=== PATIENT | female | born 1950 | race Two or more races ===

== ENCOUNTER 2021-03-15 06:15 | Inpatient (IN) | payer BC, OTHER ==
[~2021-03-15] VITALS: Ht 167.6 cm; Wt 79.4 kg
[2021-03-15] MEDS ORDERED: HEPARIN 1,000 UNITS/ml 1ML VIAL IV ONE (06:30)
[2021-03-15] MEDS ORDERED: HEPARIN SODIUM (PORCINE) 5000 UNITS/ML 1ML VIAL ONE ×2 (06:33→07:08)
[2021-03-15] MEDS ORDERED: ANGIOMAX 250 MG VIAL IV ONE (06:42)
[2021-03-15] MEDS ORDERED: fentaNYL CITRATE 100 MCG/2 ML VL ONE ×3 (06:43→09:21)
[2021-03-15] MEDS ORDERED: VERAPAMIL 2.5MG/ML INJ 2ML VIAL IV ONE (06:43)
[2021-03-15] MEDS ORDERED: MIDAZOLAM HCL 2MG/2ML 2ml VIAL (1mg/ml) ONE ×3 (06:43→09:21)
[2021-03-15] MEDS ORDERED: SODIUM CHL 0.9% 50 ML ONE (06:43)
[2021-03-15] MEDS ORDERED: LIDOCAINE 2%HCL (LOCAL ANESTH.) INJ 20ML MDV ONE ×2 (06:48→08:45)
[2021-03-15 07:00] LABS: Basophils # (auto) 0.1 10 ^3/uL (0-0.2); Basophils % (auto) 1.5 % (0.0-2.0); Eosinophils # (auto) 0.6 10 ^3/uL (0-0.8); Eosinophils % (auto) 7.1 % (0.0-7.0); Hematocrit 39.9 % (36.0-46.0); Lymphocytes # (auto) 3.5 10 ^3/uL (0.4-5.4); Lymphocytes % (auto) 42.6 % (10.0-50.0); Mean Corpuscular Hemoglobin 32.1 pg (28.0-32.0); Mean Corpuscular Volume 91.7 fL (80.0-100.0); Monocytes # (auto) 0.6 10 ^3/uL (0-1.3); Monocytes % (auto) 7.5 % (0.0-12.0); Neutrophils # (auto) 3.4 10 ^3/uL (1.6-8.6); Neutrophils % (auto) 41.3 % (37.0-80.0); Nucleated Red Blood Cells % 0.1 %; Red Blood Cells 4.36 10^6/uL (4.0-5.20); Red Cell Distribution Width 12.5 % (11.8-14.3); White Blood Cell 8.2 10^3/uL (4.4-10.8)
[2021-03-15 07:19] LABS: Calcium 8.5 mg/dL (8.5-10.1); Chloride 108 mmol/L (98-107); Potassium 4.2 mmol/L (3.5-5.1); Sodium 140 mmol/L (136-145)
[2021-03-15 07:28] LABS: Alanine Aminotransferase 20 U/L (13-56); Albumin 3.4 g/dL (3.4-5.0); Alkaline Phosphatase 53 U/L (45-117); Anion Gap 7 (5-15); Aspartate Aminotransferase 21 U/L (15-37); Bilirubin, Total 0.3 mg/dL (0.2-1.0); Blood Urea Nitrogen 15 mg/dL (7-18); Carbon Dioxide 25 mmol/L (21-32); GFR African American 93 mL/min; GFR Non-African American 77 mL/min; Glucose 101 mg/dL (74-106); Magnesium 2.2 mg/dL (1.6-2.6); Total Protein 7.2 g/dL (6.4-8.2)
[2021-03-15] MEDS ORDERED: IODIXANOL 320MG/ML 100ML BTL IV ONE (07:49)
[2021-03-15] MEDS ORDERED: TICAGRELOR 90 MG TAB ONE (08:10)
[2021-03-15] MEDS ORDERED: HYDROcodone-ACET 5/325MG TAB PO PRN (10:15)
[2021-03-15] MEDS ORDERED: MORPHINE SULF INJ 2 MG/ML SYRINGE 1ML IV PRN (10:15)
[2021-03-15] MEDS ORDERED: NITROGLYCERIN 0.4 MG SL TAB SL PRN (10:15)
[2021-03-15] MEDS ORDERED: ACETAMINOPHEN 500 MG TAB PO PRN (10:15)
[2021-03-15 12:00] VITALS: BP 153/78
[2021-03-15 14:17] VITALS: BP 153/78
[2021-03-15 16:00] VITALS: BP 152/96
[2021-03-15 22:00] VITALS: BP 145/75
[2021-03-15] MEDS: TICAGRELOR 90 MG TAB PO SCH (22:35)
[2021-03-16 05:00] VITALS: BP 108/71
[2021-03-16 06:00] LABS: Basophils # (auto) 0.1 10 ^3/uL (0-0.2); Basophils % (auto) 0.5 % (0.0-2.0); Eosinophils # (auto) 0.1 10 ^3/uL (0-0.8); Eosinophils % (auto) 0.7 % (0.0-7.0); Hematocrit 40.8 % (36.0-46.0); Hemoglobin 14.2 g/dL (12.2-16.2); Lymphocytes # (auto) 1.7 10 ^3/uL (0.4-5.4); Lymphocytes % (auto) 13.4 % (10.0-50.0); Mean Corpuscular Hgb Conc. 34.8 g/dL (32.0-36.0); Mean Corpuscular Volume 91.8 fL (80.0-100.0); Monocytes # (auto) 0.8 10 ^3/uL (0-1.3); Monocytes % (auto) 6.6 % (0.0-12.0); Neutrophils % (auto) 78.8 % (37.0-80.0); Red Blood Cells 4.44 10^6/uL (4.0-5.20); Red Cell Distribution Width 12.5 % (11.8-14.3); White Blood Cell 12.7 10^3/uL (4.4-10.8)
[2021-03-16 06:29] LABS: Albumin 3.3 g/dL (3.4-5.0); Calcium 8.5 mg/dL (8.5-10.1); Potassium 3.5 mmol/L (3.5-5.1)
[2021-03-16 06:49] LABS: BUN/Creatinine Ratio 14.1; Bilirubin, Total 0.4 mg/dL (0.2-1.0); Total Protein 7.1 g/dL (6.4-8.2)
[2021-03-16 08:00] VITALS: BP 115/69
[2021-03-16] MEDS ORDERED: LEVOTHYROXINE SODIUM 50 MCG TAB PO ONE (08:45)
[2021-03-16 09:00] VITALS: BP 115/69
[2021-03-16] MEDS: ASPirin-EC 81 mg tab PO SCH (09:51)
[2021-03-16] MEDS: TICAGRELOR 90 MG TAB PO SCH ×2 (09:51→21:46)
[2021-03-16 13:00] VITALS: BP 114/66
[2021-03-16 16:37] VITALS: BP 97/54
[2021-03-16 22:00] VITALS: BP 93/57
[2021-03-17 05:00] VITALS: BP 94/63
[2021-03-17 05:46] LABS: Basophils # (auto) 0 10 ^3/uL (0-0.2); Basophils % (auto) 0.3 % (0.0-2.0); Eosinophils # (auto) 0 10 ^3/uL (0-0.8); Eosinophils % (auto) 0.3 % (0.0-7.0); Hematocrit 38.3 % (36.0-46.0); Hemoglobin 13.3 g/dL (12.2-16.2); Lymphocytes % (auto) 15.8 % (10.0-50.0); Mean Corpuscular Hemoglobin 32.3 pg (28.0-32.0); Mean Corpuscular Hgb Conc. 34.8 g/dL (32.0-36.0); Mean Corpuscular Volume 92.7 fL (80.0-100.0); Monocytes # (auto) 1.2 10 ^3/uL (0-1.3); Monocytes % (auto) 9.5 % (0.0-12.0); Neutrophils # (auto) 9.6 10 ^3/uL (1.6-8.6); Neutrophils % (auto) 74.1 % (37.0-80.0); Nucleated Red Blood Cells % 0.2 %; Red Blood Cells 4.14 10^6/uL (4.0-5.20); Red Cell Distribution Width 12.3 % (11.8-14.3); White Blood Cell 12.9 10^3/uL (4.4-10.8)
[2021-03-17 06:02] LABS: Potassium 3.7 mmol/L (3.5-5.1)
[2021-03-17 06:24] LABS: Albumin 3.1 g/dL (3.4-5.0); BUN/Creatinine Ratio 12.7; Bilirubin, Total 0.5 mg/dL (0.2-1.0); Calcium 8.6 mg/dL (8.5-10.1); Total Protein 7.2 g/dL (6.4-8.2)
[2021-03-17] MEDS ORDERED: LEVOTHYROXINE SODIUM 50 MCG TAB PO SCH (07:00)
[2021-03-17 08:00] VITALS: BP 90/50
[2021-03-17 08:30] VITALS: BP 90/50
[2021-03-17] MEDS: ASPirin-EC 81 mg tab PO SCH (09:59)
[2021-03-17] MEDS: TICAGRELOR 90 MG TAB PO SCH (09:59)
== END 2021-03-17 11:50 | disposition home or self-care (01) | DRG 246 ==
LOC: ER 06:15 → EDBD 06:15 → CATH 06:39 → ER 06:57 → TELE 10:08 → TELE-CENTR 11:20
PROVIDERS: ADMIT Internal Medicine; ATTEND Internal Medicine
PROC: 4A023N7 Measurement of Cardiac Sampling and Pressure, Left Heart, Percutaneous Approach (ICD-10-PCS; principal; 2021-03-15)
PROC: 027137Z Dilation of Coronary Artery, Two Arteries with Four or More Drug-eluting Intraluminal Devices, Percutaneous Approach (ICD-10-PCS; 2021-03-15)
PROC: B211YZZ Fluoroscopy of Multiple Coronary Arteries using Other Contrast (ICD-10-PCS; 2021-03-15)
PROC: B215YZZ Fluoroscopy of Left Heart using Other Contrast (ICD-10-PCS; 2021-03-15)
DX: I21.19 ST elevation (STEMI) myocardial infarction involving other coronary artery of inferior wall (principal); N17.0 Acute kidney failure with tubular necrosis; E44.1 Mild protein-calorie malnutrition; R65.10 Systemic inflammatory response syndrome (SIRS) of non-infectious origin without acute organ dysfunction; E03.9 Hypothyroidism, unspecified; I12.9 Hypertensive chronic kidney disease with stage 1 through stage 4 chronic kidney disease, or unspecified chronic kidney disease; E88.09 Other disorders of plasma-protein metabolism, not elsewhere classified; Z20.822 Contact with and (suspected) exposure to COVID-19; I25.10 Atherosclerotic heart disease of native coronary artery without angina pectoris; N18.9 Chronic kidney disease, unspecified; R00.1 Bradycardia, unspecified; E78.5 Hyperlipidemia, unspecified; Z79.82 Long term (current) use of aspirin; Z79.899 Other long term (current) drug therapy; Z80.9 Family history of malignant neoplasm, unspecified; Z95.5 Presence of coronary angioplasty implant and graft; Z82.49 Family history of ischemic heart disease and other diseases of the circulatory system
CPT/HCPCS: 36415; 71045; 80053; 83735; 84443; 84484; 85025; 87426; 93306; 96374; 99152; 99153; 99291; C1874; C1887; G0378; J2250; Q9967

== ENCOUNTER 2022-02-26 15:43 | Inpatient (IN) | payer BC, OTHER ==
[~2022-02-26] VITALS: Ht 167.6 cm; Wt 85.4 kg
[2022-02-26 17:57] LABS: Hematocrit 42.2 % (36.0-46.0); Hemoglobin 13.8 g/dL (12.2-16.2); Mean Corpuscular Hemoglobin 30.6 pg (28.0-32.0); Mean Corpuscular Hgb Conc. 32.8 g/dL (32.0-36.0); Mean Corpuscular Volume 93.1 fL (80.0-100.0); Red Blood Cells 4.53 10^6/uL (4.0-5.20); White Blood Cell 9.8 10^3/uL (4.4-10.8)
[2022-02-26 18:06] LABS: Band Neutrophils % (manual) 0; Basophils % (manual) 0 (0.0-2.0); Blast Cells 0; Metamyelocytes % 0; Myelocytes % 0; Promyelocytes % 0; Reactive Lymphocytes 0
[2022-02-26 18:11] LABS: Albumin 4.2 g/dL (3.4-5.0); Calcium 9.2 mg/dL (8.5-10.1); Potassium 3.9 mmol/L (3.5-5.1)
[2022-02-26 18:14] LABS: BUN/Creatinine Ratio 14.8; Bilirubin, Total 0.4 mg/dL (0.2-1.0); Total Protein 7.9 g/dL (6.4-8.2)
[2022-02-26] MEDS ORDERED: TICAGRELOR 90 MG TAB PO ONE (18:30)
[2022-02-26] MEDS ORDERED: SODIUM CHLORIDE 0.9% 1,000 ML IV ONE (18:30)
[2022-02-26] MEDS ORDERED: HEPARIN DRIP/D5W 100UNITS/ML 250 ML IV SCH (18:30)
[2022-02-26] MEDS ORDERED: HEPARIN SODIUM (PORCINE) 5000 UNITS/ML 1ML VIAL IV ONE (18:30)
[2022-02-26] MEDS ORDERED: SOD CHL 0.45% 1,000 ML IV ONE (18:45)
[2022-02-26] MEDS ORDERED: NITROGLYCERIN 0.4 MG SL TAB SL PRN (18:45)
[2022-02-26] MEDS ORDERED: MORPHINE SULFATE INJ 2 MG/ml SYRG IV PRN (18:45)
[2022-02-26 19:12] LABS: Eosinophils % (manual) 1 (0-7); Lymphocytes % (manual) 27 (10.0-50.0); Monocytes % (manual) 10 (0-12)
[2022-02-26 22:44] LABS: INR 1.02 (0.9-1.15)
[2022-02-27] VITALS (10 sets, daily range): BP systolic 110–138; BP diastolic 65–93
[2022-02-27] MEDS ORDERED: ATOR20TA PO (03:21)
[2022-02-27] MEDS ORDERED: ASPI1TAB19 PO (03:21)
[2022-02-27] MEDS ORDERED: LEVO50TA7 PO (03:21)
[2022-02-27] MEDS ORDERED: TICA90TA PO (03:21)
[2022-02-27 04:30] LABS: INR 1.06 (0.9-1.15); Partial Thromboplastin Time 53.1 sec (24.6-33.4)
[2022-02-27 06:36] LABS: Basophils # (auto) 0 10 ^3/uL (0-0.2); Basophils % (auto) 0.4 % (0.0-2.0); Eosinophils # (auto) 0.3 10 ^3/uL (0-0.8); Eosinophils % (auto) 3.4 % (0.0-7.0); Hematocrit 37.9 % (36.0-46.0); Hemoglobin 12.8 g/dL (12.2-16.2); Lymphocytes # (auto) 2.8 10 ^3/uL (0.4-5.4); Lymphocytes % (auto) 29.3 % (10.0-50.0); Mean Corpuscular Hemoglobin 31.1 pg (28.0-32.0); Mean Corpuscular Hgb Conc. 33.7 g/dL (32.0-36.0); Mean Corpuscular Volume 92.3 fL (80.0-100.0); Monocytes # (auto) 0.7 10 ^3/uL (0-1.3); Monocytes % (auto) 7.3 % (0.0-12.0); Neutrophils # (auto) 5.7 10 ^3/uL (1.6-8.6); Neutrophils % (auto) 59.6 % (37.0-80.0); Nucleated Red Blood Cells % 0.1 %; Red Blood Cells 4.11 10^6/uL (4.0-5.20); Red Cell Distribution Width 13.2 % (11.8-14.3); White Blood Cell 9.6 10^3/uL (4.4-10.8)
[2022-02-27 06:37] LABS: Albumin 3.3 g/dL (3.4-5.0); Calcium 8.4 mg/dL (8.5-10.1); Potassium 3.6 mmol/L (3.5-5.1)
[2022-02-27 06:43] LABS: BUN/Creatinine Ratio 16.4; Bilirubin, Total 0.5 mg/dL (0.2-1.0); Total Protein 6.5 g/dL (6.4-8.2)
[2022-02-27] MEDS ORDERED: ASPirin 325 MG TAB PO ONE (09:00)
[2022-02-27 09:33] LABS: Cholesterol 143 mg/dL (< 200)
[2022-02-27 09:36] LABS: HDL Cholesterol 40 mg/dL (40-59); LDL Cholesterol 87 mg/dL (< 100); Triglycerides 166 mg/dL (< 150)
[2022-02-27 09:56] LABS: INR 0.99 (0.9-1.15); Partial Thromboplastin Time 38.7 sec (24.6-33.4)
[2022-02-27] MEDS ORDERED: HEPARIN DRIP/D5W 100UNITS/ML 250 ML IV SCH ×2 (12:15→19:00)
[2022-02-27] MEDS: TICAGRELOR 90 MG TAB PO SCH ×2 (12:58→21:47)
[2022-02-27] MEDS ORDERED: IODIXANOL 320MG/ML 100ML BTL IV ONE ×2 (14:14→14:24)
[2022-02-27] MEDS ORDERED: LIDOCAINE 2%HCL (LOCAL ANESTH.) INJ 10ml MDV ONE (14:14)
[2022-02-27] MEDS ORDERED: VERAPAMIL 2.5MG/ML INJ 2ML VIAL IV ONE (14:20)
[2022-02-27] MEDS ORDERED: ANGIOMAX 250 MG VIAL IV ONE (14:20)
[2022-02-27] MEDS ORDERED: HEPARIN SODIUM (PORCINE) 5000 UNITS/ML 1ML VIAL ONE (14:20)
[2022-02-27] MEDS ORDERED: fentaNYL CITRATE 100 MCG/2 ML VL ONE (14:21)
[2022-02-27] MEDS ORDERED: SODIUM CHL 0.9% 0 ML ONE (14:21)
[2022-02-27] MEDS ORDERED: MIDAZOLAM HCL 2MG/2ML 2ml VIAL (1mg/ml) ONE (14:21)
[2022-02-27 16:51] LABS: INR 1.01 (0.9-1.15)
[2022-02-27 16:55] LABS: Partial Thromboplastin Time > 139.0 sec (24.6-33.4)
[2022-02-27] MEDS: ATORVASTATIN 20 MG TAB PO SCH (21:47)
[2022-02-27 23:35] LABS: INR 0.99 (0.9-1.15); Partial Thromboplastin Time 37.3 sec (24.6-33.4)
[2022-02-28 05:00] VITALS: BP 120/67
[2022-02-28 06:53] LABS: Basophils # (auto) 0.1 10 ^3/uL (0-0.2); Basophils % (auto) 0.6 % (0.0-2.0); Eosinophils # (auto) 0 10 ^3/uL (0-0.8); Eosinophils % (auto) 0.5 % (0.0-7.0); Hematocrit 39.1 % (36.0-46.0); Hemoglobin 13.3 g/dL (12.2-16.2); Lymphocytes # (auto) 1.9 10 ^3/uL (0.4-5.4); Lymphocytes % (auto) 21.2 % (10.0-50.0); Mean Corpuscular Hemoglobin 31.3 pg (28.0-32.0); Mean Corpuscular Hgb Conc. 33.9 g/dL (32.0-36.0); Mean Corpuscular Volume 92.3 fL (80.0-100.0); Monocytes # (auto) 0.7 10 ^3/uL (0-1.3); Monocytes % (auto) 7.8 % (0.0-12.0); Neutrophils # (auto) 6.3 10 ^3/uL (1.6-8.6); Neutrophils % (auto) 69.9 % (37.0-80.0); Nucleated Red Blood Cells % 0.1 %; Red Blood Cells 4.24 10^6/uL (4.0-5.20); Red Cell Distribution Width 13.1 % (11.8-14.3); White Blood Cell 9.1 10^3/uL (4.4-10.8)
[2022-02-28 07:06] LABS: Albumin 3.5 g/dL (3.4-5.0); Calcium 8.6 mg/dL (8.5-10.1); Potassium 3.2 mmol/L (3.5-5.1)
[2022-02-28 07:11] LABS: BUN/Creatinine Ratio 14.1; Bilirubin, Total 0.6 mg/dL (0.2-1.0); Partial Thromboplastin Time 40.8 sec (24.6-33.4); Total Protein 7.2 g/dL (6.4-8.2)
[2022-02-28 08:00] VITALS: BP 103/60
[2022-02-28 09:00] VITALS: BP 101/67
[2022-02-28] MEDS: ASPirin 81 mg TAB PO SCH (09:47)
[2022-02-28] MEDS: TICAGRELOR 90 MG TAB PO SCH ×2 (09:47→21:30)
[2022-02-28] MEDS ORDERED: HEPARIN DRIP/D5W 100UNITS/ML 250 ML IV SCH (10:00)
[2022-02-28 13:00] VITALS: BP 105/60
[2022-02-28 15:38] LABS: INR 1.01 (0.9-1.15); Partial Thromboplastin Time 48.7 sec (24.6-33.4)
[2022-02-28 21:30] VITALS: BP 148/78
[2022-02-28] MEDS: ATORVASTATIN 20 MG TAB PO SCH (21:30)
[2022-02-28 22:41] LABS: INR 1.01 (0.9-1.15)
[2022-02-28 22:47] LABS: Partial Thromboplastin Time 72.3 sec (24.6-33.4)
[2022-03-01] MEDS: HEPARIN DRIP/D5W 100UNITS/ML 250 ML IV SCH ×3 (00:21→19:58)
[2022-03-01 05:00] VITALS: BP 136/75
[2022-03-01 06:00] LABS: Basophils # (auto) 0 10 ^3/uL (0-0.2); Basophils % (auto) 0.6 % (0.0-2.0); Eosinophils # (auto) 0.2 10 ^3/uL (0-0.8); Eosinophils % (auto) 2.2 % (0.0-7.0); Hematocrit 38.8 % (36.0-46.0); Hemoglobin 13.1 g/dL (12.2-16.2); Lymphocytes # (auto) 2.2 10 ^3/uL (0.4-5.4); Lymphocytes % (auto) 26.9 % (10.0-50.0); Mean Corpuscular Hemoglobin 31.2 pg (28.0-32.0); Mean Corpuscular Hgb Conc. 33.8 g/dL (32.0-36.0); Mean Corpuscular Volume 92.2 fL (80.0-100.0); Monocytes # (auto) 0.7 10 ^3/uL (0-1.3); Monocytes % (auto) 8.4 % (0.0-12.0); Neutrophils # (auto) 5.1 10 ^3/uL (1.6-8.6); Neutrophils % (auto) 61.9 % (37.0-80.0); Red Blood Cells 4.21 10^6/uL (4.0-5.20); White Blood Cell 8.2 10^3/uL (4.4-10.8)
[2022-03-01 06:17] LABS: Alanine Aminotransferase 22 U/L (13-56); Albumin 3.3 g/dL (3.4-5.0); Anion Gap 11 (5-15); Aspartate Aminotransferase 21 U/L (15-37); BUN/Creatinine Ratio 12.7; Blood Urea Nitrogen 9 mg/dL (7-18); Calcium 8.8 mg/dL (8.5-10.1); Carbon Dioxide 16 mmol/L (21-32); Chloride 110 mmol/L (98-107); GFR African American 105 mL/min; GFR Non-African American 87 mL/min; Glucose 91 mg/dL (74-106); Potassium 3.4 mmol/L (3.5-5.1); Sodium 137 mmol/L (136-145)
[2022-03-01 06:20] LABS: Alkaline Phosphatase 70 U/L (45-117); Bilirubin, Total 0.5 mg/dL (0.2-1.0)
[2022-03-01 06:36] LABS: INR 1.03 (0.9-1.15)
[2022-03-01 07:44] LABS: Partial Thromboplastin Time 74.3 sec (24.6-33.4)
[2022-03-01 08:00] VITALS: BP 110/60
[2022-03-01 09:00] VITALS: BP 100/49
[2022-03-01] MEDS: ASPirin 81 mg TAB PO SCH (10:55)
[2022-03-01] MEDS: TICAGRELOR 90 MG TAB PO SCH ×2 (10:55→22:15)
[2022-03-01 12:58] LABS: INR 1.01 (0.9-1.15); Partial Thromboplastin Time 58.9 sec (24.6-33.4)
[2022-03-01 13:00] VITALS: BP 133/78
[2022-03-01 14:00] VITALS: BP 137/77
[2022-03-01 21:50] VITALS: BP 131/65
[2022-03-01] MEDS: ATORVASTATIN 20 MG TAB PO SCH (22:15)
[2022-03-02 05:00] VITALS: BP 124/65
[2022-03-02 07:56] LABS: Basophils # (auto) 0.1 10 ^3/uL (0-0.2); Basophils % (auto) 0.7 % (0.0-2.0); Eosinophils # (auto) 0.2 10 ^3/uL (0-0.8); Eosinophils % (auto) 2.3 % (0.0-7.0); Hematocrit 39.2 % (36.0-46.0); Hemoglobin 13.2 g/dL (12.2-16.2); Lymphocytes # (auto) 2.3 10 ^3/uL (0.4-5.4); Mean Corpuscular Hemoglobin 31.1 pg (28.0-32.0); Mean Corpuscular Hgb Conc. 33.8 g/dL (32.0-36.0); Mean Corpuscular Volume 92.1 fL (80.0-100.0); Monocytes # (auto) 0.6 10 ^3/uL (0-1.3); Monocytes % (auto) 7.9 % (0.0-12.0); Neutrophils # (auto) 4.7 10 ^3/uL (1.6-8.6); Neutrophils % (auto) 60.1 % (37.0-80.0); Nucleated Red Blood Cells % 0.1 %; Red Blood Cells 4.26 10^6/uL (4.0-5.20); Red Cell Distribution Width 12.8 % (11.8-14.3); White Blood Cell 7.9 10^3/uL (4.4-10.8)
[2022-03-02 08:00] VITALS: BP 112/67
[2022-03-02 08:09] LABS: INR 0.97 (0.9-1.15); Partial Thromboplastin Time 33.2 sec (24.6-33.4)
[2022-03-02 08:24] LABS: Albumin 3.6 g/dL (3.4-5.0); BUN/Creatinine Ratio 13.5; Bilirubin, Total 0.5 mg/dL (0.2-1.0)
[2022-03-02] MEDS ORDERED: HEPARIN SODIUM (PORCINE) 5000 UNITS/ML 1ML VIAL IV ONE (08:30)
[2022-03-02 09:00] VITALS: BP 112/67
[2022-03-02] MEDS: HEPARIN DRIP/D5W 100UNITS/ML 250 ML IV SCH (09:17)
[2022-03-02] MEDS: ASPirin 81 mg TAB PO SCH (09:56)
[2022-03-02] MEDS: TICAGRELOR 90 MG TAB PO SCH ×2 (09:57→21:12)
[2022-03-02 13:00] VITALS: BP 129/64
[2022-03-02 16:10] LABS: INR 0.99 (0.9-1.15)
[2022-03-02 16:36] LABS: Partial Thromboplastin Time 122.2 sec (24.6-33.4)
[2022-03-02 17:00] VITALS: BP 127/79
[2022-03-02] MEDS: ATORVASTATIN 20 MG TAB PO SCH (21:12)
[2022-03-02 22:00] VITALS: BP 141/83
[2022-03-03] MEDS: HEPARIN DRIP/D5W 100UNITS/ML 250 ML IV SCH ×2 (00:08→13:44)
[2022-03-03 01:20] LABS: INR 0.99 (0.9-1.15)
[2022-03-03 01:21] LABS: Partial Thromboplastin Time 97.8 sec (24.6-33.4)
[2022-03-03 05:00] VITALS: BP 131/68
[2022-03-03 05:54] LABS: Basophils # (auto) 0 10 ^3/uL (0-0.2); Basophils % (auto) 0.5 % (0.0-2.0); Eosinophils # (auto) 0.2 10 ^3/uL (0-0.8); Eosinophils % (auto) 2.6 % (0.0-7.0); Hematocrit 38.5 % (36.0-46.0); Hemoglobin 13.1 g/dL (12.2-16.2); Lymphocytes # (auto) 2.1 10 ^3/uL (0.4-5.4); Lymphocytes % (auto) 25.9 % (10.0-50.0); Mean Corpuscular Hemoglobin 31.4 pg (28.0-32.0); Mean Corpuscular Hgb Conc. 34.1 g/dL (32.0-36.0); Mean Corpuscular Volume 92.1 fL (80.0-100.0); Monocytes # (auto) 0.6 10 ^3/uL (0-1.3); Monocytes % (auto) 7.3 % (0.0-12.0); Neutrophils # (auto) 5.2 10 ^3/uL (1.6-8.6); Neutrophils % (auto) 63.7 % (37.0-80.0); Red Blood Cells 4.18 10^6/uL (4.0-5.20); White Blood Cell 8.2 10^3/uL (4.4-10.8)
[2022-03-03 06:03] LABS: Calcium 8.6 mg/dL (8.5-10.1); Potassium 3.6 mmol/L (3.5-5.1)
[2022-03-03 06:09] LABS: Albumin 3.4 g/dL (3.4-5.0); BUN/Creatinine Ratio 15.8; Bilirubin, Total 0.4 mg/dL (0.2-1.0)
[2022-03-03 08:00] VITALS: BP 123/78
[2022-03-03 09:00] VITALS: BP 123/78
[2022-03-03 09:56] LABS: INR 0.96 (0.9-1.15); Partial Thromboplastin Time 50.9 sec (24.6-33.4)
[2022-03-03] MEDS: ASPirin 81 mg TAB PO SCH (10:00)
[2022-03-03] MEDS: TICAGRELOR 90 MG TAB PO SCH ×2 (10:00→22:01)
[2022-03-03 13:00] VITALS: BP 119/74
[2022-03-03 14:44] LABS: INR 0.98 (0.9-1.15); Partial Thromboplastin Time 46.4 sec (24.6-33.4)
[2022-03-03 17:00] VITALS: BP 139/69
[2022-03-03 22:00] VITALS: BP 158/65
[2022-03-03] MEDS: ATORVASTATIN 20 MG TAB PO SCH (22:01)
[2022-03-03 22:20] LABS: INR 0.99 (0.9-1.15)
[2022-03-04 05:00] VITALS: BP 112/61
[2022-03-04] MEDS: LEVOTHYROXINE SODIUM 50 MCG TAB PO SCH (06:12)
[2022-03-04 07:12] LABS: Basophils # (auto) 0 10 ^3/uL (0-0.2); Basophils % (auto) 0.5 % (0.0-2.0); Eosinophils # (auto) 0.2 10 ^3/uL (0-0.8); Eosinophils % (auto) 2.7 % (0.0-7.0); Hemoglobin 13.4 g/dL (12.2-16.2); Lymphocytes # (auto) 1.9 10 ^3/uL (0.4-5.4); Lymphocytes % (auto) 26.3 % (10.0-50.0); Mean Corpuscular Hemoglobin 31.7 pg (28.0-32.0); Mean Corpuscular Hgb Conc. 34.4 g/dL (32.0-36.0); Mean Corpuscular Volume 92.1 fL (80.0-100.0); Monocytes # (auto) 0.5 10 ^3/uL (0-1.3); Monocytes % (auto) 7.5 % (0.0-12.0); Neutrophils # (auto) 4.6 10 ^3/uL (1.6-8.6); Nucleated Red Blood Cells % 0.1 %; Red Blood Cells 4.24 10^6/uL (4.0-5.20); Red Cell Distribution Width 13.1 % (11.8-14.3); White Blood Cell 7.3 10^3/uL (4.4-10.8)
[2022-03-04 07:46] LABS: Albumin 3.4 g/dL (3.4-5.0); BUN/Creatinine Ratio 16.7; Bilirubin, Total 0.3 mg/dL (0.2-1.0); Total Protein 6.8 g/dL (6.4-8.2)
[2022-03-04 07:49] LABS: INR 0.97 (0.9-1.15)
[2022-03-04 08:57] VITALS: BP 125/75
[2022-03-04] MEDS: TICAGRELOR 90 MG TAB PO SCH ×2 (09:00→23:11)
[2022-03-04] MEDS: ASPirin 81 mg TAB PO SCH (09:00)
[2022-03-04] MEDS: HEPARIN DRIP/D5W 100UNITS/ML 250 ML IV SCH ×2 (09:27→16:19)
[2022-03-04 13:00] VITALS: BP 136/64
[2022-03-04 16:07] LABS: INR 0.98 (0.9-1.15); Partial Thromboplastin Time 40.8 sec (24.6-33.4)
[2022-03-04 17:00] VITALS: BP 148/81
[2022-03-04 21:41] LABS: Partial Thromboplastin Time 47.6 sec (24.6-33.4)
[2022-03-04 22:00] VITALS: BP 129/71
[2022-03-04] MEDS: ATORVASTATIN 20 MG TAB PO SCH (22:12)
[2022-03-05 05:00] VITALS: BP 124/73
[2022-03-05 05:58] LABS: Basophils # (auto) 0.1 10 ^3/uL (0-0.2); Basophils % (auto) 0.8 % (0.0-2.0); Eosinophils # (auto) 0.2 10 ^3/uL (0-0.8); Eosinophils % (auto) 3.1 % (0.0-7.0); Hematocrit 39.2 % (36.0-46.0); Hemoglobin 13.4 g/dL (12.2-16.2); Lymphocytes # (auto) 2.1 10 ^3/uL (0.4-5.4); Mean Corpuscular Hemoglobin 31.7 pg (28.0-32.0); Mean Corpuscular Hgb Conc. 34.2 g/dL (32.0-36.0); Mean Corpuscular Volume 92.7 fL (80.0-100.0); Monocytes # (auto) 0.7 10 ^3/uL (0-1.3); Monocytes % (auto) 8.5 % (0.0-12.0); Neutrophils # (auto) 4.7 10 ^3/uL (1.6-8.6); Neutrophils % (auto) 60.6 % (37.0-80.0); Nucleated Red Blood Cells % 0.1 %; Red Blood Cells 4.23 10^6/uL (4.0-5.20); Red Cell Distribution Width 13.3 % (11.8-14.3); White Blood Cell 7.8 10^3/uL (4.4-10.8)
[2022-03-05 06:12] LABS: INR 0.97 (0.9-1.15); Partial Thromboplastin Time 57.5 sec (24.6-33.4)
[2022-03-05 06:14] LABS: Albumin 3.5 g/dL (3.4-5.0); Calcium 8.9 mg/dL (8.5-10.1); Potassium 4.2 mmol/L (3.5-5.1)
[2022-03-05] MEDS: LEVOTHYROXINE SODIUM 50 MCG TAB PO SCH (06:15)
[2022-03-05 06:18] LABS: Bilirubin, Total 0.4 mg/dL (0.2-1.0); Total Protein 6.8 g/dL (6.4-8.2)
[2022-03-05] MEDS: TICAGRELOR 90 MG TAB PO SCH ×2 (08:27→21:35)
[2022-03-05] MEDS: ASPirin 81 mg TAB PO SCH (08:27)
[2022-03-05 09:02] VITALS: BP 108/71
[2022-03-05 11:33] LABS: BUN/Creatinine Ratio 20.5
[2022-03-05 12:13] LABS: INR 0.99 (0.9-1.15); Partial Thromboplastin Time 64.9 sec (24.6-33.4)
[2022-03-05] MEDS: HEPARIN DRIP/D5W 100UNITS/ML 250 ML IV SCH (12:17)
[2022-03-05 13:00] VITALS: BP 113/78
[2022-03-05 16:54] VITALS: BP 126/69
[2022-03-05 19:31] LABS: INR 0.99 (0.9-1.15); Partial Thromboplastin Time 69.6 sec (24.6-33.4)
[2022-03-05] MEDS: ATORVASTATIN 20 MG TAB PO SCH (21:35)
[2022-03-05 21:38] VITALS: BP 119/69
[2022-03-06 05:00] VITALS: BP 131/68
[2022-03-06] MEDS: LEVOTHYROXINE SODIUM 50 MCG TAB PO SCH (06:18)
[2022-03-06] MEDS: HEPARIN DRIP/D5W 100UNITS/ML 250 ML IV SCH (06:21)
[2022-03-06] MEDS: TICAGRELOR 90 MG TAB PO SCH (09:33)
[2022-03-06] MEDS: ASPirin 81 mg TAB PO SCH (09:33)
[2022-03-06 10:05] VITALS: BP 132/78
[2022-03-06 13:44] VITALS: BP 136/76
[2022-03-06 14:08] VITALS: BP 136/76
[2022-03-06 17:23] VITALS: BP 137/78
[2022-03-06 18:43] VITALS: BP 118/79
[2022-03-06 20:03] LABS: Partial Thromboplastin Time 55.5 sec (24.6-33.4)
== END 2022-03-06 19:53 | disposition short-term general hospital (02) | DRG 282 ==
LOC: ER 15:43 → TELE 18:41 → TELE-CENTR 23:49 → OBSVTOIN 02-27 09:53 → TELE-CENTR 03-01 22:13
PROVIDERS: ADMIT Internal Medicine; ATTEND Internal Medicine
PROC: 4A023N7 Measurement of Cardiac Sampling and Pressure, Left Heart, Percutaneous Approach (ICD-10-PCS; principal; 2022-02-27)
PROC: B211YZZ Fluoroscopy of Multiple Coronary Arteries using Other Contrast (ICD-10-PCS; 2022-02-27)
PROC: B215YZZ Fluoroscopy of Left Heart using Other Contrast (ICD-10-PCS; 2022-02-27)
DX: I21.4 Non-ST elevation (NSTEMI) myocardial infarction (principal); I25.10 Atherosclerotic heart disease of native coronary artery without angina pectoris; E03.9 Hypothyroidism, unspecified; E78.5 Hyperlipidemia, unspecified; Z20.822 Contact with and (suspected) exposure to COVID-19; E87.6 Hypokalemia; E66.9 Obesity, unspecified; I25.2 Old myocardial infarction; Z98.61 Coronary angioplasty status; Z79.82 Long term (current) use of aspirin; Z80.8 Family history of malignant neoplasm of other organs or systems; Z81.8 Family history of other mental and behavioral disorders; Z82.0 Family history of epilepsy and other diseases of the nervous system; Z82.3 Family history of stroke; Z82.49 Family history of ischemic heart disease and other diseases of the circulatory system; Z79.899 Other long term (current) drug therapy; Z84.1 Family history of disorders of kidney and ureter; Z98.51 Tubal ligation status; Z68.28 Body mass index [BMI] 28.0-28.9, adult
CPT/HCPCS: 36415; 71045; 80053; 80061; 83880; 84443; 84484; 85007; 85025; 85027; 85610; 85730; 93005; 93306; 93458; 96365; 96366; 96376; 99152; 99153; C1887; G0378; J2001; J2250; Q9967

== ENCOUNTER 2022-10-20 15:19 | Emergency (ER) | payer BC, OTHER ==
[~2022-10-20] VITALS: Ht 167.6 cm; Wt 69.0 kg
[~2022-10-20 15:19] MED LIST: ASPI1TAB19 PO; ATOR20TA PO; LEVO50TA7 PO; TICA90TA PO
[2022-10-20 15:32] VITALS: BP 117/87
[2022-10-20] MEDS ORDERED: ACE3T PO (20:43)
[2022-10-20] MEDS ORDERED: ACETAMINOPHEN 325 MG TAB PO ONE (20:45)
== END 2022-10-20 21:15 | disposition home or self-care (01) ==
LOC: ER 15:19
DX: S62.300A Unspecified fracture of second metacarpal bone, right hand, initial encounter for closed fracture (principal); Z98.51 Tubal ligation status; W22.8XXA Striking against or struck by other objects, initial encounter; Y93.89 Activity, other specified; Y92.89 Other specified places as the place of occurrence of the external cause; Y99.8 Other external cause status
CPT/HCPCS: 29125; 73130

== ENCOUNTER 2022-10-24 16:33 | Emergency (ER) | payer BC, OTHER ==
[~2022-10-24] VITALS: Ht 167.6 cm; Wt 61.3 kg
[~2022-10-24 16:33] MED LIST changes: +ACE3T PO
[2022-10-24 16:40] VITALS: BP 138/79
== END 2022-10-24 18:11 | disposition home or self-care (01) ==
LOC: ER 16:33
DX: S92.321A Displaced fracture of second metatarsal bone, right foot, initial encounter for closed fracture (principal); Z98.51 Tubal ligation status; W18.39XA Other fall on same level, initial encounter; Y93.89 Activity, other specified; Y92.89 Other specified places as the place of occurrence of the external cause; Y99.8 Other external cause status
CPT/HCPCS: 29125; 73130